=== PATIENT | male | born 1965 | race Caucasian/White ===

== ENCOUNTER 2017-02-09 12:37 | Day surgery (SDC) | payer OTHER ==
[~2017-02-09] VITALS: Ht 182.9 cm; Wt 140.6 kg
--- NOTE | ~2017-02-09 | EGD ---
EGD REPORT [facility] [address] [address] NAME: GAURAV HENNESSY : 65 STATUS : REG [facility] PAT#: [id number] AGE: 51 ADM/REG DATE : 02/09/17 MR#: [id number] REPORT SERV DATE: 02/09/17 DICTATED BY: MITZI EASTON DATE: 02/09/17 REPORT STATUS : Draft TRANSCRIBED BY: [facility] DATE: 02/09/17 [facility] Patient Name: Gaurav Hennessy Date of : 1965 Attending MD: SIVA EASTON MD Procedure Date No Time: 02/09/2017 Procedure: Upper GI endoscopy Indications: Gastro-esophageal reflux disease, Follow-up of celiac disease Referring MD: ALESIA HARGROVE Medicines: See the Anesthesia note for documentation of the administered medications Complications: No immediate complications. Estimated blood loss: None. Procedure: Pre-Anesthesia Assessment: - ASA Grade Assessment: III - A patient with severe systemic disease. - Prior to the procedure, a History and Physical was performed, and patient medications and allergies were reviewed. The patient's tolerance of previous anesthesia was also reviewed. The risks and benefits of the procedure and the sedation options and risks were discussed with the patient. All questions were answered, and informed consent was obtained. Prior Anticoagulants: The patient has taken no previous anticoagulant or antiplatelet agents. ASA Grade Assessment: II - A patient with mild systemic disease. After reviewing the risks and benefits, the patient was deemed in satisfactory condition to undergo the procedure. After obtaining informed consent, the endoscope was passed under direct vision. Throughout the procedure, the patient's blood pressure, pulse, and oxygen saturations were monitored continuously. The GIF [id number] was introduced through the mouth, and advanced to the second part of duodenum. The upper GI endoscopy was accomplished without difficulty. The patient tolerated the procedure well. Findings: Diffuse mucosal flattening was found in the entire examined duodenum. Biopsies were taken with a cold forceps for histology. The entire examined stomach was normal. Biopsies were taken with a cold forceps for histology. The cardia and gastric fundus were normal on retroflexion. The examined esophagus was normal. EGD REPORT [address] [address] NAME: GAURAV HENNESSY : [birth year] STATUS : REG [facility]#: [id number] AGE: 51 ADM/REG DATE : 02/09/17 MR#: [id number] REPORT SERV DATE: 02/09/17 DICTATED BY: MITZI EASTON DATE: 02/09/17 REPORT STATUS : Draft TRANSCRIBED BY: [employer] DATE: 02/09/17 Impression: - Flattened mucosa was found in the duodenum. Biopsied. - Normal stomach. Biopsied. - Normal esophagus. Recommendation: - Patient has a contact number available for emergencies. The signs and symptoms of potential delayed complications were discussed with the patient. Return to normal activities tomorrow. Written discharge instructions were provided to the patient. - Regular diet. - Discharge patient to home. - Continue present medications. - Await pathology results. - Return to my office in 4 weeks. Procedure Code(s): --- Professional --- 01776, Esophagogastroduodenoscopy, flexible, transoral; with biopsy, single or multiple Diagnosis Code(s): --- Professional --- K31.9, Disease of stomach and duodenum, unspecified K21.9, Gastro-esophageal reflux disease without esophagitis K90.0, Celiac disease CPT copyright 2013 [employer]. All rights reserved. The codes documented in this report are preliminary and upon medical coder review may be revised to meet current compliance requirements. SIVA EASTON MD 02/09/2017 3:35 PM This report has been signed electronically. Number of Addenda: 0 Note Initiated On: 02/09/2017 3:18 PM [address] [address]
[~2017-02-09 12:37] MED LIST: ASABAYER PO; COZ50 PO; HCTZ25B PO; MULTIVIT/MIN PO; NAP500 PO; NASAREL29 MCG NAS; NORV5 PO; OMEPRAZOLE PO; PRILOSEC40 MG PO; SINGULAIR1 PO; STEROID INJECTION IM; TEARS NATURA OPH; TRAZ100 PO; VENTOLIN HFA INH; ZYRTEC ALLGY10 MG PO
== END 2017-02-09 23:59 | disposition home or self-care (01) ==
LOC: DMU 12:37
PROVIDERS: Internal Medicine Gastroenterology
PROC: 0DB98ZX Excision of Duodenum, Via Natural or Artificial Opening Endoscopic, Diagnostic (ICD-10-PCS; 2017-02-09)
PROC: 0DB68ZX Excision of Stomach, Via Natural or Artificial Opening Endoscopic, Diagnostic (ICD-10-PCS; principal; 2017-02-09 14:30)
DX: K29.50 Unspecified chronic gastritis without bleeding (principal); K31.89 Other diseases of stomach and duodenum; K21.9 Gastro-esophageal reflux disease without esophagitis; K90.0 Celiac disease; I10 Essential (primary) hypertension; J44.9 Chronic obstructive pulmonary disease, unspecified; E66.9 Obesity, unspecified; F43.10 Post-traumatic stress disorder, unspecified; F41.9 Anxiety disorder, unspecified; F32.9 Major depressive disorder, single episode, unspecified; F17.200 Nicotine dependence, unspecified, uncomplicated; Z90.49 Acquired absence of other specified parts of digestive tract; Z68.41 Body mass index [BMI] 40.0-44.9, adult; Z98.890 Other specified postprocedural states; Z79.899 Other long term (current) drug therapy
CPT/HCPCS: 88305